=== PATIENT | female | born 1990 | race Caucasian/White ===

== ENCOUNTER 2017-04-27 09:19 | Outpatient (CLI) | END 2017-04-27 12:20 | disposition home or self-care (01) ==

== ENCOUNTER 2017-05-07 10:07 | Outpatient (CLI) | END 2017-05-07 14:24 | disposition home or self-care (01) ==

== ENCOUNTER 2017-06-30 10:03 | Inpatient (IN) | END 2017-07-03 15:55 | disposition home or self-care (01) | DRG 775 ==

== ENCOUNTER 2018-06-03 13:03 | Emergency (ER) | payer MEDICAID, OTHER ==
[~2018-06-03] VITALS: Ht 167.6 cm; Wt 69.1 kg
[~2018-06-03 13:03] MED LIST: IBUP-1542 PO; LEVO150T7 PO; PREN-93 PO
[2018-06-03 13:18] VITALS: BP 131/73; PULSE 63; RESP 20; Ht 167.6 cm; Wt 69.1 kg
[2018-06-03] MEDS ORDERED: ONDANSETRON (ODT) 4 MG TAB ODT STA (15:26)
[2018-06-03] MEDS ORDERED: LIDOCAINE/MYLANTA 40 ML BTL PO STA (15:27)
[2018-06-03] MEDS ORDERED: BELLADONNA/PHENOBARBITAL TAB PO STA (15:27)
[2018-06-03] MEDS ORDERED: ONDA4TAB14 PO (16:01)
[2018-06-03] MEDS ORDERED: ACET325T33 PO (16:01)
[2018-06-03] MEDS ORDERED: FAMO-96 PO (16:01)
--- NOTE | 2018-06-03 16:19 | ERD ---
ER Documentation Chief Complaint Chief Complaint Complains of nausea and vomiting x 3 days HPI 27-year-old female presenting with nausea and vomiting for 3 days. Patient has been vomiting green bile and has not been able to tolerate p.o.'s. No changes in urination or bowel movement. Negative test at home. A0. Denies severe abdominal pain but has generalized discomfort. Medical history is hypothyroidism. NKDA. Surgical history denies. Social history denies ROS All systems reviewed and are negative except as per history of present illness. Medications Home Meds Active Scripts Acetaminophen* (Tylenol*) 325 Mg Tablet, 1 TAB PO Q6 PRN for PAIN AND OR ELEVATED TEMP, #20 TAB Prov:ISABEL DOUGHERTY PA-C 06/03/18 Famotidine* (Pepcid*) 20 Mg Tablet, 20 MG PO BID for 4 Days, #30 TAB Prov:ISABEL DOUGHERTY PA-C 06/03/18 Ondansetron (Ondansetron Odt) 4 Mg Tab.rapdis, 4 MG PO Q6H PRN for NAUSEA AND/OR VOMITING, #10 TAB Prov:ISABEL DOUGHERTY PA-C 06/03/18 Ibuprofen* (Ibuprofen*) 600 Mg Tablet, 600 MG PO Q6, #60 TAB 0 Refills Prov:ROXANNA RUFFIN MD 07/02/17 Levothyroxine Sodium* (Levothyroxine Sodium*) 150 Mcg Tablet, 150 MCG PO BEFORE BREAKFAST, #100 TAB 1 Refill Prov:ROXANNA RUFFIN MD 07/02/17 Reported Medications Vit No.124/Iron/FA ( Vitamin Tablet) 1 Each Tablet, 1 EACH PO DAILY, TAB 05/07/17 Allergies Allergies: Coded Allergies: No Known Allergy (Unverified , 04/27/17) PMhx/Soc Medical and Surgical Hx: pt denies Surgical Hx Hx Miscellaneous Medical Probl: Yes (hypothyroidism) Hx Alcohol Use: No Hx Substance Use: No Hx Tobacco Use: Yes Smoking Status: Former smoker FmHx Family History: No diabetes, No coronary disease, No other Physical Exam Vitals Vital Signs Date Temp Pulse Resp B/P (MAP) Pulse Ox O2 O2 Flow FiO2 Time Delivery Rate 06/03/18 98.6 63 20 131/73 100 13:18 (92) Physical Exam GENERAL: The patient is well-appearing, well-nourished, in no acute distress HEENT: Atraumatic. Conjunctivae are pink. Pupils equal, round, and reactive to light. There is no scleral icterus. Tympanic membranes clear bilaterally. Oropharynx clear. NECK: C-spine is soft and supple. There is no meningismus. There is no cervical lymphadenopathy. CHEST: Clear to auscultation bilaterally. There are no rales, wheezes or rhonchi. HEART: Regular rate and rhythm. No murmurs, clicks, rubs or gallops. ABDOMEN:Soft, nontender and nondistended. Good bowel sounds. No rebound or guarding. No gross peritonitis. No gross organomegaly or masses. Results 24 hrs Laboratory Tests Test 06/03/18 15:36 06/03/18 15:48 Bedside Urine pH (LAB) 6.0 Bedside Urine Protein (LAB) 2+ Bedside Urine Glucose (UA) Negative Bedside Urine Ketones (LAB) 4+ Bedside Urine Blood Negative Bedside Urine Nitrite (LAB) Negative Bedside Urine Leukocyte Esterase (L Negative POC Beta HCG, Qualitative NEGATIVE Current Medications Medications Dose Sig/Carrillo Start Time Status Last (Trade) Ordered Route PRN Stop Time Admin Dose Reason Admin Ondansetron 4 mg ONCE STAT 06/03/18 DC 06/03/18 HCl (Zofran ODT 15:26 15:35 Odt) 06/03/18 15:27 40 ml ONCE STAT 06/03/18 DC 06/03/18 Miscellaneous PO 15:27 15:37 Medication 06/03/18 15:28 (Gi Cocktail (2)) Belladonna/ 2 tab ONCE STAT 06/03/18 DC 06/03/18 Phenobarbital PO 15:27 15:35 () 06/03/18 15:28 Procedures/MDM ER course: Zofran p.o. challenge given ED. GI cocktail given. MDM: 27-year-old female presenting with vomiting. Patient passed p.o. challenge in the ER. Patient's exam is non-concerning. I have low suspicion for acute abdominal emergency. Patient is discharged with supportive medications and told to follow-up with primary care within 1-2 days for close evaluation. Patient is told if symptoms change or worsen to return immediately to the ER. All ques tions answered at discharge Departure Diagnosis: Primary Impression: Nausea and vomiting Condition: Stable Patient Instructions: Nausea and Vomiting-Adult Referrals: [facility] YOU HAVE RECEIVED A MEDICAL SCREENING EXAM AND THE RESULTS INDICATE THAT YOU DO NOT HAVE A CONDITION THAT REQUIRES URGENT TREATMENT IN THE EMERGENCY DEPARTMENT. FURTHER EVALUATION AND TREATMENT OF YOUR CONDITION CAN WAIT UNTIL YOU ARE SEEN IN YOUR DOCTORS OFFICE WITHIN THE NEXT 1-2 DAYS. IT IS YOUR RESPONSIBILITY TO MAKE AN APPOINTMENT FOR FOLOW-UP CARE. IF YOU HAVE A PRIMARY DOCTOR --you should call your primary doctor and schedule an appointment IF YOU DO NOT HAVE A PRIMARY DOCTOR YOU CAN CALL OUR PHYSICIAN REFERRAL HOTLINE AT IF YOU CAN NOT AFFORD TO SEE A PHYSICIAN YOU CAN CHOSE FROM THE FOLLOWING [facility] [address] [facility]. [facility] [address]. [facility] [address] [facility] [address]. [facility] [address] [facility]. [facility]. [address] Additional Instructions: FOLLOW UP WITH YOUR PRIMARY CARE PHYSICIAN TOMORROW.Return to this facility if you are not improving as expected. ISABEL DOUGHERTY PA-C Jun 03, 2018 16:19
== END 2018-06-03 16:09 | disposition home or self-care (01) ==
LOC: FTE 13:03
DX: R11.2 Nausea with vomiting, unspecified (principal); E03.9 Hypothyroidism, unspecified; Z87.891 Personal history of nicotine dependence
CPT/HCPCS: 81003; 81025; Z7502; Z7610; 99283